=== PATIENT | female | born 1960 | race Caucasian/White ===

== ENCOUNTER 2017-05-08 05:43 | Day surgery (SDC) | payer OTHER, SELFPAY ==
[2017-05-05 12:27] LABS: Absolute Lymphocyte Count 0.59 X10^3/ul (0.83-4.51); Absolute Neutrophil Count 3.7 X10^3/uL (2.0-7.7); Basophil# 0.03 X10^3/uL; Basophil% 0.6 % (0-1); Eosinophil# 0.11 X10^3/uL; Eosinophils% 2.3 % (0-5); Hematocrit 39.5 % (37-47); Hemoglobin 13.3 g/dl (12.0-15.0); Lymphocyte # 0.59 X10^3/ul (4.0); Lymphocyte % 12.2 % (19-41); Mean Corp Hgb Conc 33.7 g/gl (32-36); Mean Corpuscular Hgb 31.5 pg (27.0-32.0); Mean Corpuscular Volume 93.6 fL (81-99); Mean Platelet Vol. 10.4 fl (6.2-12.0); Monocyte% 8.2 % (0-10); Neutrophil # 3.72 X10^3/uL (2.7-7.7); Neutrophil % 76.7 % (47-70); Platelet Count 228 K/mm3 (150-450); RBC Distribution Width CV 13.1 % (11.6-14.6); RBC Distribution Width SD 43.3 fl (35.1-43.9); Red Blood Count 4.22 M/mm3 (4.2-5.4); White Blood Count 4.9 K/mm3 (4.4-11.0)
[2017-05-05 12:28] LABS: Differential Indicated SCAN CRITERIA MET; POSITIVE COUNT NO; POSITIVE DIFFERENTIAL YES; POSITIVE MORPHOLOGY NO
[2017-05-08] VITALS (8 sets, daily range): BP systolic 118–150; BP diastolic 64–84; PULSE 58–95; RESP 14–20; TEMP 36.3–36.7; O2SAT 98–100; BMI 20.9
--- NOTE | 2017-05-08 05:31 | PCM.HPOB.BLA ---
(1) Postmenopausal bleeding Status: Acute History and Physical Date of Admission: 05/08/17 Intake Intake Visit Reasons: Pre OP Chief Complaint: Pre Op Appt Portfolio Accountant Required: No Is patient in pain?: No Allergies No Known Allergies Allergy (Verified 05/05/17 10:34) Medications Hydrocodone Bitart/Apap 5-325 [[place] 5/325] 1 tab PO Q3H PRN #30 tab 05/27/14 [Rx Confirmed 05/05/17] Insulin Aspart [Novolog Flexpen] 0 units SC 0800,1200,1700 #1 flexpen 05/27/14 [Rx Confirmed 05/05/17] Methotrexate 20 mg PO We@1000 #0 tab 05/27/14 [Rx Confirmed 05/05/17] Cholecalciferol (Vitamin D3) [Vitamin D3] 2,000 unit PO DAILY 05/01/17 [History Confirmed 05/05/17] Cyanocobalamin [Vitamin B12] 500 mcg PO DAILY@0800 05/01/17 [History Confirmed 05/05/17] Folic Acid 1 mg PO DAILY 05/01/17 [History Confirmed 05/05/17] Insulin Detemir [Levemir FlexPen] 10 units SC QHS 05/01/17 [History Confirmed 05/05/17] Insulin Detemir [Levemir FlexPen] 12 units SC DAILY 05/01/17 [History Confirmed 05/05/17] Losartan Potassium [Cozaar] 25 mg PO QODAY 05/01/17 [History Confirmed 05/05/17] Is last menstrual period known: No Patient : No : No PFSH Medical History Diabetes (Acute) Surgical History History of back surgery (Acute) Family History Unknown Diabetes Social History Smoking Status: Never smoker alcohol intake: current details: social substance use type: does not use caffeine: Yes frequency: 3-4 times per week duration: 15-30 minutes/day seatbelt use: always do you feel safe at home: Yes additional social history: Ramon - Retired HPI Pre OP: Details: KOJO GIBBONS is a 56 year old who presents for postmenopausal bleeding for over 3 months, had us done and has a 10 mm lining and 4 fibroids. she denies any cramping or pain. she has been postmenopausal for 4-5 years. Female Reproductive History Questions: Metorrhagia: Yes, Sexually active: Yes, Dyspareunia: No, PCB: No Pregancy History 2 Elective abortions Hx Para 2 Spontaneous abortions Hx # Term Pregnancies Ectopic pregnancies Hx # Pregnancies Multiple births # of living children Past Pregnancies Del. Date Name GA/Weeks Outcome Route Bth Weight Infant Gen Labor Lgth Anesthesia Del Locatn Provider FOB Unknown 1977 [place] Unknown 1980 Addy ROS Const Constitutional: Denies poor appetite, headache(s), fever(s), increased appetite, weight gain, weight loss or fatigue ENT ENT: Denies dry mouth GI GI: Reports as per HPI; denies vomiting, nausea, abdominal pain or constipation : Reports as per HPI; denies difficulty urinating, blood in urine, pelvic pain, urinary frequency, urinary incontinence, urinary hesitancy, urinary urgency, vaginal discharge, vaginal dryness, vaginal odor, vaginal itching, other, painful urination or nipple discharge Skin Skin/Breast: Denies hair loss, change in hair, dry skin, breast pain, breast skin changes, breast lump or nipple discharge Exam Const General: cooperative, healthy appearing, comfortable, no acute distress, well developed Nutritional Appearance: average body habitus Orientation: alert [facility] Head: normal to inspection, normocephalic Ears: hearing grossly normal bilaterally, external ears normal Nose: external nose normal, nares normal Face and sinus: normal facial exam Neck Neck: normal visual inspection, trachea midline, no lymphadenopathy Thyroid: thyroid normal Resp Effort & Inspection: normal respiratory effort Musc Other: gross motor intact no deficits, full bilateral strength Skin General: no rashes or lesions noted Neuro Motor: muscle tone normal throughout Assessment & Plan Problems 1. Type 1 diabetes mellitus without complication E10.9 2. Post-menopausal bleeding N95.0 3. Thickened endometrium R93.8 Plan I have discussed with the patient the risks, benefits, and alternatives of the procedure including risks of anesthesia, bleeding, infection, uterine perforation which could cause damage to bowel, bladder, or vasculature and lead to additional surgery to evaluate any complications. Coding Level of Care Code No Charge Diagnoses Type 1 diabetes mellitus without complication E10.9 ??Diabetes mellitus complication status: without complication Post-menopausal bleeding N95.0 Thickened endometrium R93.8
[2017-05-08 06:21] LABS: Bedside Glucose 147 mg/dL (70-110)
--- NOTE | 2017-05-08 07:10 | PCM.OPRPT ---
Problem List (1) Postmenopausal bleeding Status: Acute Report of Operation Date of Procedure: 05/08/17 Pre-Operative Diagnosis: postmenopausal bleeding Surgery/Procedure Performed:: d and c hysteroscopy Description of Surgical Findings:: Multiple submucosal fibroids Type of Anesthesia:: General, Local MAC Specimen's removed: EMC Estimated Blood Loss (mL): 25 Fluids Replaced: crystalloid Description of Procedure: Patient was prepped and draped in a normal sterile fashion under MAC anesthesia. This was found to be inadequate and therefore patient was placed under general anesthesia. A weighted speculum was placed in the vagina and the anterior lip of the cervix was grasped with a single-tooth tenaculum. A paracervical block was placed with 1% lidocaine. Cervix was progressively dilated to allow passage of a 5 mm hysteroscope. The lining was fully visualized and noted to have multiple submucosal fibroid. Uterine sounded to 8 cm. Using the [facility] operative hysteroscope multiple myomectomies were performed and a polypectomy. Overall sizes of the fibroids were 1-2 cm and the polyp was 5 mm. curettage was performed and minimal endometrial tissue was obtained due to an atrophic lining, sent to pathology. All instruments were removed from the vagina and excellent hemostasis was noted. Patient was awoken and taken to recovery in stable condition. Grafts/Implants Used: none - Complications none - Admit VTE Documentation VTE Present on Admission: No VTE Mechan Device Prophylaxis: SCD's
[2017-05-08] MEDS: Lubricating Jelly 60 GM Tube 30 GM TOPICAL (07:16)
--- NOTE | 2017-05-08 07:30 | EMB_PTH ---
PATIENT: KOJO GIBBONS LOC: [facility] [place] U#:[id number] AGE/SX: 56/F ROOM: RE05/08/[address]: Dr. Cat Camp MD : 1960 BED: DIS: 05/08/2017 SPEC #: [id number] RECD: 05/08/17 08:52 STATUS: SANA CARLOS #: [id number] MARY: 05/08/17 07:[address]: Cat Camp DEPT: SURGICAL PATHOLOGY RECD BY: Vijay Pate ENTERED: 05/08/17 09:28 SP TYPE: ENDOM BX/C HAYDEE DR: Dr. Wendy Daniels MD Tissues: Endometrium, NOS Procedures: Surgery Specimen Level IV HEADER OPERATION: Hysteroscopy, dilation and curettage PRE-OP DIAGNOSIS: Postmenopausal bleeding TISSUE SUBMITTED: Endometrial curettings and fibroids MICROSCOPIC DIAGNOSIS Endometrial curettings and fibroids: Weakly proliferative endometrium. Consistent with submucosal leiomyoma. SJ:citlali 05/09/17 MICROSCOPIC DESCRIPTION Slides are reviewed. GROSS DESCRIPTION Received in fixative is one container labeled with the patient's name and designated endometrial curettings and fibroid. The specimen consists of multiple irregular fragments of rodriguez, indurated tissue that in aggregate measure 5 x 3 x 0.3 cm. The entire specimen is submitted in two cassettes. / ELOISA:citlali 05/08/17 TC:1 CPT: 58739
--- NOTE | 2017-05-08 08:05 | PCM.DC.D&C ---
Allergies/Adverse Reactions: Allergies No Known Allergies Allergy (Verified 05/05/17 10:34) Medications to take at Discharge Hydrocodone Bitart/Apap 5-325 [[place] 5/325] 1 tab PO Q3H PRN #30 tab 05/27/14 Insulin Aspart [Novolog Flexpen] 0 units SC 0800,1200,1700 #1 flexpen 05/27/14 Methotrexate 20 mg PO We@1000 #0 tab 05/27/14 Cholecalciferol (Vitamin D3) [Vitamin D3] 2,000 unit PO DAILY 05/01/17 Cyanocobalamin [Vitamin B12] 500 mcg PO DAILY@0800 05/01/17 Folic Acid 1 mg PO DAILY 05/01/17 Insulin Detemir [Levemir FlexPen] 10 units SC QHS 05/01/17 Insulin Detemir [Levemir FlexPen] 12 units SC DAILY 05/01/17 Losartan Potassium [Cozaar] 25 mg PO QODAY 05/01/17 Primary Care Physician: Wendy Daniels MD [Primary Care Provider] - Please Follow Up With: Cat Camp MD - [phone] When: 2 weeks
[2017-05-08 08:21] LABS: Bedside Glucose 191 mg/dL (70-110)
--- NOTE | 2017-05-08 08:42 | NURSING ---
ACCUCHECK 191
== END 2017-05-08 10:20 | disposition home or self-care (01) ==
LOC: SDC 05:44 → AC 05:45
PROVIDERS: Family Provider Internal Medicine; PCP Internal Medicine; Visit Provider Obstetrics & Gynecology
PROC: 0UDB8ZZ Extraction of Endometrium, Via Natural or Artificial Opening Endoscopic (ICD-10-PCS; CPT 58558; principal; 2017-05-08 07:20)
DX: D25.0 Submucous leiomyoma of uterus (principal); N85.8 Other specified noninflammatory disorders of uterus; N95.0 Postmenopausal bleeding; R93.8 Abnormal findings on diagnostic imaging of other specified body structures; I10 Essential (primary) hypertension; M06.9 Rheumatoid arthritis, unspecified; E10.9 Type 1 diabetes mellitus without complications; Z79.4 Long term (current) use of insulin; Z87.891 Personal history of nicotine dependence; Z79.899 Other long term (current) drug therapy
CPT/HCPCS: 00952; 58558; 36415; 82962; 85025; 86850; 86900; 88305; J7120; J2405; J3490

== ENCOUNTER → 2017-08-18 09:21 | Outpatient (CLI) | payer OTHER, SELFPAY ==
--- NOTE | 2017-08-18 09:24 | BI_ITS ---
MAMMOGRAPHY - BILATERAL SCREENING REASON FOR EXAM: Female, 57 years old. Routine annual screening examination. PERTINENT HISTORY: Non-contributory. TECHNIQUE: Digital bilateral breast colt (3D mammographic acquisition) in the CC and MLO projections. 2-D mediolateral oblique (MLO) and craniocaudad (CC) views of both breasts were obtained. CAD: Full Field Digital Mammography with Computer Added Detection was performed. COMPARISON: Comparison is made with prior study dated August 14, 2016 and September 26, 2014. FINDINGS: Breast Composition: The breasts are heterogeneously dense, which may obscure small masses. There are no dominant masses or suspicious calcifications. No other significant abnormalities are identified. There has been no significant change since the prior study. BI/SCREENING MAMM (CAD), BILAT IMPRESSION: Stable bilateral screening mammogram. Yearly follow-up mammogram recommended. (A) ASSESSMENT CATEGORY: BIRADS Category 1: Negative. A letter regarding these results will be sent to the patient by the facility within 30 days. Approximately 10% of breast cancers are not detected by mammography. A normal mammogram should not delay biopsy of a clinically suspicious abnormality. [id number] Electronically Signed: Cayetano Del Valle MD at 11:02 EDT Tel [phone], Service support ,
== END ==
PROVIDERS: Family Provider Internal Medicine; PCP Internal Medicine; Visit Provider Internal Medicine
DX: Z12.31 Encounter for screening mammogram for malignant neoplasm of breast (principal)
CPT/HCPCS: 77063; 77067

== ENCOUNTER → 2018-02-04 12:23 | Outpatient (CLI) | payer OTHER, SELFPAY ==
--- NOTE | 2018-02-04 12:27 | CT_ITS ---
STUDY: CT BRAIN WITHOUT CONTRAST REASON FOR EXAM: Female, 57 years old. Acute headaches. RADIATION DOSAGE (If Supplied By Facility): CTDIvol = ( 44.99 ) mGy, DLP = ( 829.85 ) mGycm TECHNIQUE: Transaxial CT imaging of the brain was performed without administration of intravenous contrast material. Individualized dose optimization techniques were used for this CT. COMPARISON: Comparison is made with prior examination dated May 17, 2014. FINDINGS: Normal soft tissue structures. Normal calvarium. There is mild cerebral atrophy with widening of the extra-axial spaces and ventricular dilatation. Normal white matter tracts of the cerebral hemispheres. Normal basal ganglia and thalami. Normal brainstem. Normal cerebellum. There is no intracranial hemorrhage. There are no findings of an acute ischemic infarction. Atherosclerotic calcification of the cavernous portions of the internal carotid arteries bilaterally. Normal visualized paranasal sinuses. CT/Brain/Head without Contrast IMPRESSION: Chronic involutional changes of the brain. Electronically Signed: Cayetano Del Valle MD at 12:54 EDT Tel [phone], Service support ,
[2018-02-04 12:53] LABS: Absolute Lymphocyte Count 0.49 X10^3/ul (0.83-4.51); Absolute Neutrophil Count 3.9 X10^3/uL (2.0-7.7); Basophil# 0.03 X10^3/uL; Basophil% 0.6 % (0-1); Eosinophil# 0.05 X10^3/uL; Hematocrit 39.3 % (37-47); Hemoglobin 13.3 g/dl (12.0-15.0); Lymphocyte # 0.49 X10^3/ul (4.0); Lymphocyte % 10.2 % (19-41); Mean Corp Hgb Conc 33.8 g/gl (32-36); Mean Corpuscular Hgb 31.1 pg (27.0-32.0); Mean Corpuscular Volume 91.8 fL (81-99); Mean Platelet Vol. 10.3 fl (6.2-12.0); Monocyte# 0.29 X10^3/uL; Monocyte% 6.1 % (0-10); Neutrophil # 3.91 X10^3/uL (2.7-7.7); Neutrophil % 81.7 % (47-70); Platelet Count 238 K/mm3 (150-450); Red Blood Count 4.28 M/mm3 (4.2-5.4); White Blood Count 4.8 K/mm3 (4.4-11.0)
[2018-02-04 12:54] LABS: POSITIVE COUNT NO; POSITIVE DIFFERENTIAL NO; POSITIVE MORPHOLOGY NO
[2018-02-04 12:56] LABS: Erythrocyte Sedimentation Rate 6 mm/hr (0-30)
[2018-02-04 13:05] LABS: Anion Gap 12 (5-15); BUN 13 mg/dL (7-18); BUN/Creat Ratio 18.7 RATIO (10-20); Chloride 97 mmol/L (98-107); EST Glomerular Filtration Rate 91 mL/min (>60); Est Glom Filt Rate - Afr Amer 110 mL/min (>60); Glucose 241 mg/dL (74-106); Potassium 4.1 mmol/L (3.5-5.1); Sodium Level 137 mmol/L (136-145)
== END ==
PROVIDERS: Family Provider Internal Medicine; PCP Internal Medicine; Referring Provider Internal Medicine; Visit Provider Internal Medicine
DX: R51 Headache (principal)
CPT/HCPCS: 70450; 80048; 85025; 85652; 86140

== ENCOUNTER → 2018-02-05 10:38 | Outpatient (CLI) | payer OTHER, SELFPAY ==
--- NOTE | 2018-02-05 | CYSPIN_PTH ---
PATIENT: KOJO GIBBONS LOC: [facility] U#:[id number] AGE/SX: 64/F ROOM: RE02/05/[address]: Dr. Ana Mendoza DO : 1960 BED: DIS: SPEC #: [id number] RECD: 02/05/18 13:41 STATUS: SOUT REQ #: [id number] MARY: 02/05/18 00:[address]: Ana Mendoza DEPT: CYTOLOGY RECD BY: Rogers Dougherty ENTERED: 02/05/18 13:41 SP TYPE: CYSPIN FL OTHR DR: Dr. Wendy Daniels MD Tissues: Cerebrospinal Fluid Procedures: Pap Stain (control) Special Stain Group II Cytospin Fluid HEADER OPERATION: Lumbar puncture PRE-OP DIAGNOSIS: Acute headache TISSUE SUBMITTED: Cerebrospinal fluid for cytology DIAGNOSIS CYTOLOGY Cerebrospinal fluid for cytology (cytospin): Acute and chronic inflammatory cells present. AM:citlali 02/06/18 CYTOLOGY STUDY Slides are reviewed. CYTOLOGY GROSS Received is 4 ml of clear fluid labeled with the patient's name and and designated per the requisition as CSF. Submitted for cytology preparation. 02/05/18 TC:2 CPT: 64110
--- NOTE | 2018-02-05 11:00 | RAD_ITS ---
PROCEDURE: Fluoroscopic guided Lumbar Puncture. DATE: February 05, 2018 CLINICAL INDICATION: Headaches and neck stiffness. PHYSICIAN: Cayetano Del Valle M.D. MEDICATIONS: 1% lidocaine administered subcutaneously for local anesthesia. ACCESS SITE: Lower posterior back. NEEDLE: 22-gauge spinal needle. SPECIMEN: Approximately 9 mL clear]CSF fluid. FLUOROSCOPY TIME (if supplied): (1:09) minutes/seconds COMPLICATIONS: None immediate. The risks, benefits, and alternatives to the procedure were explained to the patient. The specific risks of bleeding, infection, and neurovascular injury were detailed and accepted. Witnessed informed consent was obtained. The patient was placed on the fluoroscopic table in the prone position. The level for needle entry was determined and marked. The overlying skin was cleaned and prepped in the usual sterile fashion. 2% lidocaine was administered subcutaneously for local anesthesia. Under fluoroscopic guidance a 22-gauge spinal needle was advanced. The thecal sac was entered at the L3- L4 vertebral level. The inner stylet was removed. There was spontaneous flow of clear CSF fluid. The opening pressure was 7 mm. The patient was placed in a reversed Trendelenburg position. Approximately 9 mL of cerebrospinal fluid was collected using gravity. The specimen was collected and submitted to the laboratory for further evaluation. The needle was withdrawn,. Hemostasis was achieved and a sterile dressing placed. The patient tolerated the procedure well without any immediate complications. The patient was placed supine with head elevated and returned to the floor in stable condition. RAD/Fluoro Guided Lumbar Puncture IMPRESSION: Successful fluoroscopic-guided lumbar puncture. Electronically Signed: Cayetano Del Valle MD at 13:13 EDT Tel [phone], Service support ,
[2018-02-05 11:01] VITALS: BP 162/73; PULSE 100; RESP 14; TEMP 37.1; O2SAT 98; BMI 20.5
[2018-02-05 11:57] LABS: Cytology, Body Fluid / CSF SEE PATHOLOGY REPORT
[2018-02-05 12:17] LABS: Body Fluid Mononuclear WBC # 0.008 10^3/uL; Body Fluid Mononuclear WBC % 57.1 %; Body Fluid Polynuclear WBC # 0.006 10^3/uL; Body Fluid Polynuclear WBC % 42.9 %; Total Cell Count CSF 0.014 10^3/uL (0.000-0.000); White Count, CSF 0.014 10^3/uL (0.000-0.000)
[2018-02-05 12:30] VITALS: BP 161/77; PULSE 93; RESP 16; O2SAT 96
[2018-02-05 12:34] LABS: Glucose Spinal Fluid 143 mg/dL (40-75)
[2018-02-05 12:46] LABS: RBC Count, Spinal Fluid 0 /mm-3 (None seen)
[2018-02-05 13:29] LABS: Appearance CSF (character) CLEAR (Clear); Auto B Fluid Analyzer BKGD Ct COUNTS W/IN LIMITS (W/IN LIMITS); Body Fluid QC Type(s) BF1Q; CSF Color COLORLESS (Colorless); Tested Tube # 3
[2018-02-06 14:34] LABS: Pathologist Review Reviewed
== END ==
PROVIDERS: Family Provider Internal Medicine; PCP Internal Medicine; Referring Provider Internal Medicine; Visit Provider Internal Medicine
DX: R51 Headache (principal)
CPT/HCPCS: 62270; 77003; 82945; 84157; 87070; 87205; 88108; 88313; 89050; 89051

== ENCOUNTER → 2018-08-19 10:03 | Outpatient (CLI) | payer OTHER, SELFPAY ==
[2018-04-20 09:49] VITALS: BMI 20.9
--- NOTE | 2018-08-19 10:07 | BI_ITS ---
MAMMOGRAPHY - BILATERAL SCREENING REASON FOR EXAM: Female, 58 years old. Routine annual screening examination. PERTINENT HISTORY: Non-contributory. TECHNIQUE: Digital bilateral breast colt (3D mammographic acquisition) in the CC and MLO projections. 2-D mediolateral oblique (MLO) and craniocaudad (CC) views of both breasts were obtained. CAD: Full Field Digital Mammography with Computer Added Detection was performed. COMPARISON: Comparison is made with prior study dated August 18, 2017 and August 14, 2016. FINDINGS: Breast Composition: The breasts are heterogeneously dense, which may obscure small masses. There are no dominant masses or suspicious calcifications. No other significant abnormalities are identified. There has been no significant change since the prior study. BI/SCREENING MAMM (CAD), BILAT IMPRESSION: Stable bilateral screening mammogram. Yearly follow-up mammogram recommended. (A) ASSESSMENT CATEGORY: BIRADS Category 1: Negative. A letter regarding these results will be sent to the patient by the facility within 30 days. Approximately 10% of breast cancers are not detected by mammography. A normal mammogram should not delay biopsy of a clinically suspicious abnormality. [id number] Electronically Signed: Cayetano Del Valle, at 13:10 EDT , Service support ,
== END ==
PROVIDERS: Family Provider Internal Medicine; PCP Internal Medicine; Referring Provider Internal Medicine; Visit Provider Internal Medicine
DX: Z78.0 Asymptomatic menopausal state (principal); Z12.31 Encounter for screening mammogram for malignant neoplasm of breast
CPT/HCPCS: 77063; 77067

== ENCOUNTER → 2018-11-18 10:38 | Outpatient (CLI) | payer OTHER, SELFPAY ==
[2018-04-20 09:49] VITALS: BMI 20.9
[2018-11-18 12:38] LABS: ALB/GLOB Ratio 1.1 RATIO (0.9-2.4); AST(SGOT) 20 U/L (15-37); Alanine Aminotransfer ALT/SGPT 19 U/L (13-56); Albumin, Serum 3.8 g/dL (3.2-5.0); Alkaline Phosphatase 132 U/L (45-117); Anion Gap 5 (5-15); BUN 9 mg/dL (7-18); BUN/Creat Ratio 11.3 RATIO (10-20); Calcium,Total 9.7 mg/dL (8.5-10.1); Chloride 101 mmol/L (98-107); Creatinine, Serum 0.79 mg/dL (0.55-1.02); EST Glomerular Filtration Rate 78 mL/min (>60); Est Glom Filt Rate - Afr Amer 95 mL/min (>60); Globulin 3.5 g/dL (2.2-4.2); Glucose 214 mg/dL (74-106); Protein, Total 7.3 g/dL (6.4-8.2); Sodium Level 135 mmol/L (136-145)
== END ==
PROVIDERS: Family Provider Internal Medicine; PCP Internal Medicine; Referring Provider Internal Medicine Rheumatology; Visit Provider Internal Medicine Rheumatology
DX: Z79.899 Other long term (current) drug therapy (principal)
CPT/HCPCS: 36415; 80053

== ENCOUNTER → 2019-08-23 07:01 | Outpatient (CLI) | payer OTHER, SELFPAY ==
[2018-04-20 09:49] VITALS: BMI 20.9
--- NOTE | 2019-08-23 07:03 | BI_ITS ---
MAMMOGRAPHY - BILATERAL SCREENING REASON FOR EXAM: Female, 59 years old. Routine annual screening examination. PERTINENT HISTORY: Non-contributory. TECHNIQUE: Digital bilateral breast isiah (3D mammographic acquisition) in the CC and MLO projections. 2-D mediolateral oblique (MLO) and craniocaudad (CC) views of both breasts were obtained. CAD: Full Field Digital Mammography with Computer Added Detection was performed. COMPARISON: None. FINDINGS: Breast Composition: The breasts are heterogeneously dense, which may obscure small masses. There are no dominant masses or suspicious calcifications. No other significant abnormalities are identified. BI/SCREEN MAMM (CAD) W/ISIAH BILAT IMPRESSION: Stable bilateral screening mammogram. Yearly follow-up mammogram recommended. (A) ASSESSMENT CATEGORY: BIRADS Category 2: Benign. A letter regarding these results will be sent to the patient by the facility within 30 days. Approximately 10% of breast cancers are not detected by mammography. A normal mammogram should not delay biopsy of a clinically suspicious abnormality. [id number] Electronically Signed: Bean Montanez, at 12:48 EDT Tel , Service support ,
== END ==
PROVIDERS: PCP Internal Medicine; Referring Provider Internal Medicine; Visit Provider Internal Medicine
DX: Z12.31 Encounter for screening mammogram for malignant neoplasm of breast (principal)
CPT/HCPCS: 77063; 77067

== ENCOUNTER → 2020-01-18 12:32 | Outpatient (CLI) | payer OTHER, SELFPAY ==
[2018-04-20 09:49] VITALS: BMI 20.9
[2020-01-18 12:59] LABS: Bacteria 0 SEEN /hpf (None Seen); Mucous, Urine 0 SEEN /hpf (<or=2+); Red Blood Cells-Urine 0 SEEN /hpf (0-5); Squamous Epithelial Cells - UA 0 SEEN /hpf (5-10); White Blood Cells 0 SEEN /hpf (0-5)
[2020-01-18 13:11] LABS: Color, Urine Yellow (Yellow); Glucose, Dipstick 50 mg/dl (Normal); Ketone-Dipstick 15 mg/dl (Negative); Leukocyte Esterase-Dipstick 25 /ul (Negative); Nitrite-Dipstick Negative (Negative); Occult Blood-Urine Negative /ul (Negative); Protein-Dipstick Negative (Negative); Specific Gravity, Urine 1.015 (1.002-1.030); Urine Bilirubin Dipstick Negative (Negative); Urine Clarity Clear (Clear); Urine Urobilinogen Normal (Normal)
[2020-01-18 13:40] LABS: PTHIN 53.6 pg/mL (18.4-80.1)
== END ==
PROVIDERS: PCP Internal Medicine; Referring Provider Internal Medicine; Visit Provider Internal Medicine
DX: E10.9 Type 1 diabetes mellitus without complications (principal); E83.52 Hypercalcemia
CPT/HCPCS: 81001; 82330; 83970

== ENCOUNTER → 2022-04-17 | Outpatient (CLI) | payer BC, SELFPAY ==
--- NOTE | 2022-04-17 14:43 | US_ITS ---
INDICATION: Menopausal Bleeding - Pelvic EXAMINATION: Ultrasound US Pelvis Non OB Complete With Transvaginal Imaging TECHNIQUE: Transabdominal and transvaginal pelvic ultrasound was performed. Grayscale, spectral waveform, and color flow Doppler evaluation of the adnexa. COMPARISON: April 14, 2017 FINDINGS: UTERUS: The uterus measures 8.3 x 3.8 x 4.5 cm. Within the anterior uterine fundus there is an intramural isoechoic 2.0 x 1.3 x 2.0 cm soft tissue focus consistent with a fibroid. Within the posterior uterine fundus there is a hypoechoic 1.5 x 1.3 x 1.6 cm intramural fibroid as well. There is a 0.8 x 0.7 x 1.1 cm intramural fibroid within the anterior uterine fundus as well. The myometrium is heterogenous The endometrial stripe measures 1.6 mm in AP diameter which is within normal limits. RIGHT OVARY: The right ovary measures 1.7 x 0.9 x 1.1 cm.. Non-enlarged, normal echogenicity. There is normal arterial inflow and venous outflow present in the right ovary. LEFT OVARY: The left ovary measures 3.3 x 1.3 x 1.1 cm. Non-enlarged, normal echogenicity. There is normal arterial inflow and venous outflow present in the left ovary. FREE FLUID: None. The urinary bladder volume measures 390 cc. There are no filling defects. US/Pelvic (Non ) IMPRESSION: Intramural fibroids. Heterogenous myometrium may be secondary to history of adenomyosis. Electronically Signed: Kaila Ashley MD at 9:50 EST ,
--- NOTE | 2022-04-17 15:22 | BI_ITS ---
MAMMOGRAPHY - BILATERAL SCREENING REASON FOR EXAM: Female, 61 years old. Routine annual screening examination. PERTINENT HISTORY: Non-contributory. TECHNIQUE: Digital bilateral breast isiah (3D mammographic acquisition) in the CC and MLO projections. 2-D mediolateral oblique (MLO) and craniocaudad (CC) views of both breasts were obtained. CAD: Full Field Digital Mammography with Computer Added Detection was performed. COMPARISON: Comparison is made with prior study 08/23/2019 and 08/19/2018. FINDINGS: Breast Composition: The breasts are extremely dense, which lowers the sensitivity of mammography. There are no dominant masses or suspicious calcifications. No other significant abnormalities are identified. There has been no significant change since the prior study. BI/SCRN MAMM (CAD)W/ISIAH BILAT IMPRESSION: Stable bilateral screening mammogram. Yearly follow-up mammogram recommended. (A) ASSESSMENT CATEGORY: BIRADS Category 1: Negative. A letter regarding these results will be sent to the patient by the facility within 30 days. Approximately 10% of breast cancers are not detected by mammography. A normal mammogram should not delay biopsy of a clinically suspicious abnormality. [id number] Electronically Signed: Cayetano Del Valle MD at 8:18 EST ,
== END | disposition home or self-care (01) ==
PROVIDERS: PCP Internal Medicine; Referring Provider Internal Medicine; Visit Provider Internal Medicine
DX: N95.0 Postmenopausal bleeding (principal); Z12.31 Encounter for screening mammogram for malignant neoplasm of breast
CPT/HCPCS: 76830; 76856; 77063; 77067

== ENCOUNTER → 2022-08-20 | Outpatient (CLI) | payer BC, SELFPAY ==
[2022-08-20 18:22] LABS: AST(SGOT) 25 U/L (15-37); Alanine Aminotransfer ALT/SGPT 30 U/L (13-56); Albumin, Serum 3.8 g/dL (3.2-5.0); Alkaline Phosphatase 143 U/L (45-117); Bilirubin, Direct 0.19 mg/dL (0.00-0.30); Globulin 3.3 g/dL (2.2-4.2); Protein, Total 7.1 g/dL (6.4-8.2)
== END | disposition home or self-care (01) ==
LOC: MTLAB 14:30
PROVIDERS: PCP Internal Medicine; Referring Provider Internal Medicine Rheumatology; Visit Provider Internal Medicine Rheumatology
DX: R74.8 Abnormal levels of other serum enzymes (principal)
CPT/HCPCS: 36415; 80076

== ENCOUNTER → 2022-09-30 | Outpatient (CLI) | payer BC, SELFPAY ==
[2022-09-30 10:01] LABS: Absolute Lymphocyte Count 0.74 X10^3/uL (0.83-4.51); Absolute Neutrophil Count 3.4 X10^3/uL (2.0-7.7); Basophil# 0.05 X10^3/uL; Eosinophil# 0.22 X10^3/uL; Eosinophils% 4.5 % (0-5); Hematocrit 40.6 % (37-47); Hemoglobin 13.4 g/dL (12.0-15.0); Lymphocyte # 0.74 X10^3/ul (0.83-4.51); Lymphocyte % 15.3 % (19-41); Mean Corpuscular Hgb 30.7 pg (27.0-32.0); Mean Corpuscular Volume 93.1 fL (81-99); Mean Platelet Vol. 10.1 fl (6.2-12.0); Monocyte# 0.46 X10^3/uL; Monocyte% 9.5 % (0-10); NRBC Flagged by Analyzer 0 % (0-5); Neutrophil # 3.36 X10^3/uL (2.7-7.7); Neutrophil % 69.5 % (47-70); Platelet Count 224 K/mm3 (150-450); RBC Distribution Width CV 13.3 % (11.6-14.6); RBC Distribution Width SD 45.3 fl (35.1-43.9); Red Blood Count 4.36 M/mm3 (4.2-5.4); White Blood Count 4.8 K/mm3 (4.4-11.0)
[2022-09-30 10:19] LABS: ALB/GLOB Ratio 1.2 RATIO (0.9-2.4); AST(SGOT) 32 U/L (15-37); Alanine Aminotransfer ALT/SGPT 32 U/L (13-56); Albumin, Serum 3.9 g/dL (3.2-5.0); Alkaline Phosphatase 97 U/L (45-117); Anion Gap 5 (5-15); BUN 14 mg/dL (7-18); Calcium,Total 9.7 mg/dL (8.5-10.1); Chloride 107 mmol/L (98-107); Cholesterol 252 mg/dL (200); Creatinine, Serum 0.78 mg/dL (0.55-1.02); EST Glomerular Filtration Rate 79 mL/min (>60); Est Glom Filt Rate - Afr Amer 96 mL/min (>60); GGTP 33 U/L (5-55); Globulin 3.3 g/dL (2.2-4.2); Glucose 186 mg/dL (74-106); High Density Lipoprotein 111 mg/dL; Potassium 3.9 mmol/L (3.5-5.1); Protein, Total 7.2 g/dL (6.4-8.2); Sodium Level 140 mmol/L (136-145); Triglycerides 110 mg/dL; Very Low Density Lipoprotein 22 mg/dL (5-40)
[2022-09-30 10:20] LABS: Hemoglobin A1c 7.2 % (3.8-5.6)
== END | disposition home or self-care (01) ==
PROVIDERS: PCP Internal Medicine
DX: R74.8 Abnormal levels of other serum enzymes (principal)
CPT/HCPCS: 36415; 80053; 80061; 82977; 83036; 85025

== ENCOUNTER 2023-06-11 08:00 | Outpatient (RCR) | payer MEDICARE, BC, SELFPAY ==
--- NOTE | 2023-05-09 08:05 | HP.PTEVAL ---
Patient's Visit Information Visit Information Visit Information: KOJO GIBBONS is a 62 year old F referred to Physical Therapy by Dr. Wendy Daniels MD with a diagnosis of unsteady gait, vertigo. Date of Evaluation: 05/09/23 Physical Therapist: Ori Munoz, DPT, OCS, CSCS Visit Plan Frequency: 2x /Week Duration: 4-6 Weeks Plan: biodex balance test the likely 2x/week for 4 weeks to teach balance ex for coordination ankles, general LE strength, vestibualr and somatosensory challenges and weight shifts. Subjective Subjective: I got some vertigo. I could not walk a straight line for doctor. has tinnitus. laid down in doctor office with head back and head felt heavy for a bit for a minute. OK sitting up. did test b/c ears felt worse. Head felt worse last few months(6-7). Gets along great during the day, up and down stairs with laundry has to hang on. No falls. No neuropathy. No spinning. Unsteady feeling only in standing. Activities are normal. Sleeping well. Not employed. 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 Does yard work. Objective Objective: Walks into PT I with minimally neuropathic gait pattern, slight diminished proprioception with foot slap despite no weakness. Short step lengths and push off. Trasnfers I, cvautiously. Steps reciprocal with one rail. Diminished sensation distally in B LE. coordination to reciprocal toe and heel tapping is at deficits, heel to sepulveda test is normal, reciprocal hand tapping normal. reflexes 1/3 patella and achilles B strength ankles 4/5, knees 4/5, hips 4-/5 and symmetircal. UE AROM WFL cervical aROM WFL. - B hallpike gina - roll test. Oculomotor is unremarkable: no nystagmus with gaze or head shake - ocular tilt - skew eye deviation - head thrust normal pursuit , saccades and VOR without symptoms. Appears to be a steadiness problem mostly likely due to some neuropathy in feet and weakness in vestibular balance. Balance/Special Test Scores Functional Gait Assessment Score: 24 % Disability: 20.0000 CATSIB Score (Max score 120 seconds): 92 Dizziness Score: 18 Goals Goal 1:: Biodex balance testing complete Goal Time Frame: 2 Weeks Goal 2:: FGA to limit fall risk Goal Time Frame: 4-6 Weeks Goal 3:: romberg 20 seconds on foam with ec to show improved vestibular balance Goal Time Frame: 4-6 Weeks Goal 4:: I approrpiate HEP to limit future problems Goal Time Frame: 4-6 Weeks Rehabilitation Potential Physical Therapy Diagnosis: unsteadiness limiting function potentially at home Rehabilitation Potential: Good Anticipated Interventions Patient/Client Instruction: Educate patient on: Condition and Plan of Care For the Purpose of:: To decrease pain, To improve nutrient delivery to tissue, To increase tolerance to activity/condition/position and To improve gait and locomotor functions Therapeutic Exercise to Include: Strength training, Balance training, Postural training, Flexibilty training and Gait and locomotor training For the Purpose of:: To decrease pain, To increase ROM, To improve nutrient delivery to tissue, To increase tolerance to activity/condition/position and To improve gait and locomotor functions Text: Thank you for the opportunity to evaluate your patient. For Medicare and Medicare HMO plans, please review the plan of care and approve it. It will need to be FAXED BACK to us at [phone] for Medicare purposes. For Medicare only, by signing this I certify the plan of care. Please let me know if there are questions or concerns regarding this plan of care. Physician Signature: Date:
--- NOTE | 2023-05-20 13:28 | HP.PTCOM ---
PT Communication Note 05/20/[address] Wendy Daniels MD , Thank you for the referral of Bette to [facility] for Biodex Balance assessment. I have enclosed a copy of the results for your review. In summation, she scores 2 standard deviations below the norm in the eyes closed portion of the Modified CTSIB and has multiple LOB with eyes closed on the foam. She shows poor posterior weight shift ability on the Limits of Stability Test. With these results in mind, I plan to see her 2x/week for 4 weeks to teach her appropriate balance, vestibular and general exercises until she can complete them independently. Please do not hesitate to reach out to me if there are questions regarding her care. Sincerely, REEMA SamT, OCS, CSCS Contact Information
--- NOTE | 2023-06-11 08:54 | HP.PTREVAL ---
Re-Evaluation Intro: Dr. Wendy Daniels MD, It has been my pleasure to treat KOJO GIBBONS over the last 9 visits for unsteady gait, vertigo. Please see the progress note below for an update on the physical therapy plan of care! Subjective Subjective: I think I am getting better. Activities at home are normal. No real dizzyness lately. To doctor in July. Doing exercises at home and they are challenging. Wants to continue via HEP adn then f/u in 2 weeks for progression and d/c if doing well. Objective Objective/Function: FGA+1 romberg ec foam 20 sec (+18) Transfers I without UE, steps reciprocally with one rail. Overall improving and appropriate to continue via HEP and f/u in 2-3 weeks. NEW goal and fair prognosis. Plan Plan Plan: f/u 2-3 weeks to check fga, romberg and progress exercises as needed. Balance/Gait/Functional tests Balance/Special Test Scores Functional Gait Assessment Score: 25 % Disability: 16.6700 CATSIB Score (Max score 120 seconds): 110 Dizziness Score: 20 Goals Goals Goal 1:: Biodex balance testing complete Goal Time Frame: 2 Weeks Goal Progress: Goal Met Goal 2:: FGA 28/30 to limit fall risk Goal Time Frame: 4-6 Weeks Goal Progress: Progressing, approp Goal 3:: romberg 20 seconds on foam with ec to show improved vestibular balance Goal Time Frame: 4-6 Weeks Goal Progress: Goal Met Goal 4:: I approrpiate HEP to limit future problems Goal Time Frame: 4-6 Weeks Goal Progress: Goal Met Goal 5:: Maintain improvements of FGA and romberg with HEP Goal Time Frame: 2-4 Weeks Goal Progress: NEW GOAL Anticipated Interventions Anticipated Interventions Patient/Client Instruction: Educate patient on: Condition and Plan of Care For the Purpose of:: To decrease pain, To improve nutrient delivery to tissue, To increase tolerance to activity/condition/position and To improve gait and locomotor functions Therapeutic Exercise to Include: Strength training, Balance training, Postural training, Flexibilty training and Gait and locomotor training For the Purpose of:: To decrease pain, To increase ROM, To improve nutrient delivery to tissue, To increase tolerance to activity/condition/position and To improve gait and locomotor functions Re-Evaluation Ending Re-evaluation ending: Please do not hesitate to contact me at [phone] by phone or if you have questions or concerns regarding this new plan of care! Sincerely, Ori Munoz, REEMAT, OCS, CSCS
--- NOTE | 2023-09-04 11:47 | HP.PT.NRP ---
Patient Information Patient Information: KOJO GIBBONS was seen in my office for initial evaluation on 05/09/23. The following Plan of Care was established for this patient: POC Established Initial Frequency: 2x /Week Initial Duration: 4-6 Weeks Anticipated Interventions Patient/Client Instruction: Educate patient on: Condition and Plan of Care For the Purpose of:: To decrease pain, To improve nutrient delivery to tissue, To increase tolerance to activity/condition/position and To improve gait and locomotor functions Therapeutic Exercise to Include: Strength training, Balance training, Postural training, Flexibilty training and Gait and locomotor training For the Purpose of:: To decrease pain, To increase ROM, To improve nutrient delivery to tissue, To increase tolerance to activity/condition/position and To improve gait and locomotor functions Last Seen Last Seen: This patient was last seen in our office 06/11/23. Pertinent comments regarding their Physical therapy will appear below: Pt seen 9 visits of POC and was 45% better and had good home exercises. she was to f/u 3 weeks to ensure progress but did not attend. At t his point, it has been over 2 months and I will discontinue due to nonattendance. At this point I will be discontinuing this patient from physical therapy. I would be happy to see this patient again in the future if found appropriate by the physician. Thank you! Ori Munoz, DPT, OCS, CSCS Balance/Gait/Functional tests Balance/Special Test Scores Functional Gait Assessment Score: 25 % Disability: 16.6700 CATSIB Score (Max score 120 seconds): 110 Dizziness Score: 20
== END 2023-06-11 19:00 | disposition home or self-care (01) ==
LOC: PT 08:00
PROVIDERS: PCP Internal Medicine; Referring Provider Internal Medicine; Visit Provider Internal Medicine
DX: R42 Dizziness and giddiness (principal); R26.81 Unsteadiness on feet
CPT/HCPCS: 97110; 97112; 97161; 97530; 97750

== ENCOUNTER → 2023-06-17 | Outpatient (CLI) | payer MEDICARE, SELFPAY ==
--- NOTE | 2023-06-17 08:28 | BI_ITS ---
MAMMOGRAPHY - BILATERAL SCREENING REASON FOR EXAM: Female, 63 years old. Routine annual screening examination. PERTINENT HISTORY: Non-contributory. TECHNIQUE: Digital bilateral breast isiah (3D mammographic acquisition) in the CC and MLO projections. 2-D mediolateral oblique (MLO) and craniocaudad (CC) views of both breasts were obtained. CAD: Full Field Digital Mammography with Computer Added Detection was performed. COMPARISON: Comparison is made with prior study dated April 17, 2022 and August 23, 2019. FINDINGS: Breast Composition: The breasts are extremely dense, which lowers the sensitivity of mammography. There are no dominant masses or suspicious calcifications. No other significant abnormalities are identified. There has been no significant change since the prior study. BI/SCRN MAMM (CAD)W/ISIAH BILAT IMPRESSION: Stable bilateral screening mammogram. Yearly follow-up mammogram recommended. (A) ASSESSMENT CATEGORY: BIRADS Category 1: Negative. A letter regarding these results will be sent to the patient by the facility within 30 days. Approximately 10% of breast cancers are not detected by mammography. A normal mammogram should not delay biopsy of a clinically suspicious abnormality. [id number] Electronically Signed: Cayetano Del Valle MD at 9:43 EDT ,
== END | disposition home or self-care (01) ==
LOC: OPBI 08:28
PROVIDERS: PCP Internal Medicine; Referring Provider Internal Medicine; Visit Provider Internal Medicine
DX: Z12.31 Encounter for screening mammogram for malignant neoplasm of breast (principal)
CPT/HCPCS: 77063; 77067

== ENCOUNTER → 2023-07-03 | Outpatient (CLI) | payer MEDICARE, SELFPAY ==
--- NOTE | 2023-07-03 06:42 | MRI_ITS ---
INDICATION: rule out cervical disc herniation and transverse myelitis. EXAMINATION: MRI - MR Spine Cervical WO/W Contrast TECHNIQUE: Multiplanar and multisequence MR images of the cervical spine were performed pre and post IV contrast . IV Contrast Dosage and Agent: 10ml clariscan. COMPARISON: CT cervical spine April 08, 2014. FINDINGS: VERTEBRAE: Normal general bone marrow signal with mild diffuse mixed acute and chronic endplate degenerative change. Chronic vertebral height loss at C5 and C6 with straightening of the normal cervical lordosis. Degenerative grade 1 anterolisthesis C7 on T1 secondary to facet arthropathy. No aggressive osseous lesion. CERVICAL SPINAL CORD: Mild increased cord fluid signal at C3-C4 without expansion or syrinx. No evidence of abnormal intramedullary or extramedullary enhancement.. C2/C3: Normal disc height and morphology. Normal spinal canal and neuroforamina. C3/C4: Moderate posterior disc osteophyte complex and facet arthropathy with posterior disc protrusion effacing the anterior cord. Underlying mild increased cord signal. Mild left neural foraminal narrowing. . C4/C5: Small broad-based posterior disc osteophyte complex with mild spinal canal narrowing, moderate bilateral neural foraminal narrowing. C5/C6: Small broad-based posterior disc osteophyte complex with mild spinal canal narrowing, moderate left neural foraminal narrowing, and mild right neural foraminal narrowing. . C6/C7: Small broad-based posterior disc osteophyte complex with minimal spinal canal narrowing and mild right neural foraminal narrowing. . C7/T1: Bilateral facet arthropathy with degenerative grade 1 anterolisthesis and uncovering of the posterior superior disc. Together findings cause mild spinal canal narrowing . NECK SOFT TISSUES: No prevertebral soft tissue swelling. There is no cervical adenopathy. MRI/Spine Cervical W/WO Contrast IMPRESSION: Diffuse spondylosis, most prominent at C3-C4 where there is effacement of anterior cord and associated cord signal change. Correlate with distribution of symptoms. No evidence to suggest transverse myelitis. Electronically Signed: Vinicio Ramirez MD at 18:05 EDT ,
[2023-07-03 07:17] LABS: CREATININE FINGERSTICK 1.2 mg/dL (0.55-1.02)
== END | disposition home or self-care (01) ==
PROVIDERS: PCP Internal Medicine; Referring Provider Internal Medicine; Visit Provider Internal Medicine
DX: M54.2 Cervicalgia (principal)
CPT/HCPCS: 72156; A9575

== ENCOUNTER → 2024-01-21 | Outpatient (CLI) | payer MEDICARE, SELFPAY ==
--- NOTE | 2024-01-21 11:56 | NEURO ---
NCS and/or EMG Patient Report Ordering Doctor: Shen Collier DATE OF SERVICE: 01/21/24 Bette presents for electrodiagnostic testing of the upper limbs. She reports numbness and tingling in both hands for the past several months. Electrodiagnostic findings: Median motor nerve demonstrates prolonged distal latency bilaterally with normal amplitude and reduced conduction velocities. Ulnar motor response is within normal limits bilaterally. Normal median and ulnar F?waves. Prolonged median sensory latency at the wrist bilaterally. Needle EMG testing was performed upper limbs. All muscles tested showed no evidence of denervation with normal motor unit action potentials Electrodiagnostic impression: This is an abnormal study in the upper limbs 1. Electrodiagnostic findings suggestive of bilateral median mononeuropathy. This is consistent with a mild to moderate bilateral carpal tunnel syndrome. Multi Select Codes Neurology Neurology Interp Codes: 90394-45 Musc test done w/n test comp (interp) (2) and 97646-82 Nrv cndj test 9-10 studies (interp)
== END | disposition home or self-care (01) ==
PROVIDERS: PCP Internal Medicine; Referring Provider Orthopaedic Surgery Orthopaedic Surgery of the Spine; Visit Provider Orthopaedic Surgery Orthopaedic Surgery of the Spine
DX: Z98.1 Arthrodesis status (principal); M48.02 Spinal stenosis, cervical region
CPT/HCPCS: 95886; 95911

== ENCOUNTER → 2024-02-26 | Outpatient (CLI) | payer MEDICARE, SELFPAY ==
[2024-02-26 10:02] LABS: Absolute Lymphocyte Count 0.73 X10^3/uL (0.83-4.51); Absolute Neutrophil Count 3.7 X10^3/uL (2.0-7.7); Basophil# 0.03 X10^3/uL; Basophil% 0.6 % (0-1); Eosinophil# 0.01 X10^3/uL; Eosinophils% 0.2 % (0-5); Hematocrit 38.2 % (37-47); Hemoglobin 12.2 g/dL (12.0-15.0); Lymphocyte # 0.73 X10^3/ul (0.83-4.51); Lymphocyte % 14.5 % (19-41); Mean Corp Hgb Conc 31.9 g/dL (32-36); Mean Corpuscular Hgb 28.9 pg (27.0-32.0); Mean Corpuscular Volume 90.5 fL (81-99); Mean Platelet Vol. 9.9 fl (6.2-12.0); Monocyte# 0.56 X10^3/uL; Monocyte% 11.1 % (0-10); NRBC Flagged by Analyzer 0 % (0-5); Neutrophil # 3.68 X10^3/uL (2.7-7.7); Neutrophil % 73.2 % (47-70); Platelet Count 270 K/mm3 (150-450); RBC Distribution Width CV 15.2 % (11.6-14.6); RBC Distribution Width SD 50.2 fl (35.1-43.9); Red Blood Count 4.22 M/mm3 (4.2-5.4)
== END | disposition home or self-care (01) ==
PROVIDERS: PCP Internal Medicine; Referring Provider Internal Medicine Rheumatology; Visit Provider Internal Medicine Rheumatology
DX: D64.9 Anemia, unspecified (principal)
CPT/HCPCS: 36415; 85025

== ENCOUNTER → 2024-06-23 | Outpatient (CLI) | payer MEDICARE, SELFPAY ==
--- NOTE | 2024-06-23 07:45 | BI_ITS ---
PROCEDURE: SCRN MAMM (CAD)W/ISIAH BILAT REASON FOR EXAM: F, Age 64 y/o , SCRN MAMM (CAD)W/ISIAH BILAT TECHNIQUE: Bilateral screening digital breast tomosynthesis with 2D and 3D images. Computer aided detection. COMPARISON: 06/17/2023, 04/17/2022 FINDINGS: The breasts are extremely dense which lowers the sensitivity of mammography. No suspicious masses, areas of developing architectural distortion, or suspicious calcifications. BI/SCRN MAMM (CAD)W/ISIAH BILAT IMPRESSION: There is no mammographic evidence of malignancy. BI-RADS 1: NEGATIVE. RECOMMEND ANNUAL MAMMOGRAPHIC SCREENING. Follow-up code: Routine Follow-up The patient will be notified of the results by letter. Reading Location: [id number]
== END | disposition home or self-care (01) ==
LOC: OPBI 07:45
PROVIDERS: PCP Internal Medicine; Referring Provider Internal Medicine; Visit Provider Internal Medicine
DX: Z12.31 Encounter for screening mammogram for malignant neoplasm of breast (principal)
CPT/HCPCS: 77063; 77067

== ENCOUNTER → 2025-02-25 | Outpatient (CLI) | payer MEDICARE, SELFPAY ==
[2025-02-25 10:57] LABS: AST(SGOT) 27 U/L (<=31); Alanine Aminotransfer ALT/SGPT 19 U/L (<=34); Albumin, Serum 4.3 g/dL (3.4-4.8); Alkaline Phosphatase 87 U/L (35-104); Anion Gap 11 (5-15); BUN 13 mg/dL (4-19); BUN/Creat Ratio 17.8 RATIO (10-20); Calcium,Total 10.2 mg/dL (7.6-11.0); Carbon Dioxide 26.4 mmol/L (21.0-32.0); Chloride 103 mmol/L (98-108); Globulin 2.7 g/dL (2.2-4.2); Glucose 252 mg/dL (70-99); Potassium 4.3 mmol/L (3.3-5.1)
== END | disposition home or self-care (01) ==
LOC: MTLAB 08:57
PROVIDERS: PCP Internal Medicine; Referring Provider Internal Medicine; Visit Provider Internal Medicine
DX: E10.9 Type 1 diabetes mellitus without complications (principal)
CPT/HCPCS: 36415; 80053; 83036

== ENCOUNTER → 2025-03-16 | Outpatient (CLI) | payer MEDICARE, SELFPAY ==
--- NOTE | 2025-03-16 10:11 | STE_ITS ---
Reason For Study Reason For Study: ABN EKG Stress Results Protocol: Eber Protocol Maximum Predicted HR: 154 bpm Target HR: 131 bpm % Maximum Predicted HR: 94 % DurationHeart Rate Stage (mm:ss) (bpm) BP Comment BASELINE 93 152/82 STAGE 1 3:00 120 172/84 STAGE 2 3:00 142 186/82 STAGE 3 0:15 144 / LEG DISCOMFORT RECOVERY 93 158/82 Stress Duration: 6:15 mm:ss Maximum Stress HR: 144 bpm Baseline Echocardiogram Findings Stress Echo Wall motion Data Resting WM Intermediate WM Stress WM ECHO/Stress Test Echo w/o Contrast Interpretation Summary Exercise stress echocardiogram 64-year-old female undergoing ischemic evaluation. Resting EKG showing normal s inus rhythm with a ventricular rate of 83 bpm. Normal intervals, no evidence of prior infarction or ongoing ischemia. Unr emarkable resting EKG. Resting blood pressure was 152/82. Patient exercised according to a regular Eber protocol fo r a total duration of 6 minutes and 16 seconds. Patient attained a maximal heart rate of 151 bpm. This was 98% of the maximal age-predicted heart rate. The maximum workload was 7.7 METS. During stress portion, horizontal ST depressions were noted greater than 1 mm in the inferior leads as well as V5 and V6. The test was terminated due to leg pain an d target heart rate achieved. The rate pressure product was 11760. The peak blood pressure was 186/82, and normal resp onse to exercise. Stress echocardiogram: The resting echocardiogram showed ejection fraction of approximately 55%. Upon stress, inferior wall hypokinesis and inferoseptal wall hypokinesis was noted without appropriate augmentation of con tractility and left ventricular ejection fraction. Conclusion: Abnormal EKG exercise stress test and abnormal stress echocardiogram with crite aye for ischemia in the RCA distribution. Ordering Physician: Larry Oreilly MD Referring Physician: Larry Oreilly Performed By: Yelitza Hauser RDCS
== END | disposition home or self-care (01) ==
LOC: CVS 10:09
PROVIDERS: PCP Internal Medicine; Referring Provider Internal Medicine Cardiovascular Disease; Visit Provider Internal Medicine Cardiovascular Disease
DX: R94.31 Abnormal electrocardiogram [ECG] [EKG] (principal); E10.9 Type 1 diabetes mellitus without complications; I10 Essential (primary) hypertension; I25.10 Atherosclerotic heart disease of native coronary artery without angina pectoris
CPT/HCPCS: 93017; 93350